=== PATIENT | male | born 1995 | race Caucasian/White ===

== ENCOUNTER 2016-07-11 11:43 | Emergency (ER) | payer OTHER ==
[2016-07-11 11:57] VITALS: BP 123/54; PULSE 65; RESP 16; TEMP 97.5; O2SAT 97
--- NOTE | 2016-07-11 12:39 | EDPHY ---
H & P Time Seen by Provider: 07/11/16 12:06 HPI/ROS: CHIEF COMPLAINT: right shoulder pain, right ankle pain HISTORY OF PRESENT ILLNESS: 21-year-old male presents to the emergency department by private vehicle complaining of right and left shoulder pain as well as right ankle pain. The patient states 1 week ago he fell down some stairs. He did not hit his head or lose consciousness. Since that time he has had what he describes as a clicking sensation in his right shoulder. He has some mild pain in his left shoulder. He is also having some pain in his right ankle. He is able to bear weight. He denies bilateral knee pain. He denies neck or back pain. Denies chest pain or difficulty breathing. Denies paresthesias in upper or lower extremities. Denies headache. REVIEW OF SYSTEMS: Constitutional: No fever, no chills. Eyes: No double or blurry vision. ENT: No sore throat. Respiratory: No cough, no shortness of breath. Cardiac: No chest pain. Gastrointestinal: No abdominal pain, vomiting or diarrhea. Genitourinary: No dysuria. Musculoskeletal: No neck or back pain. Skin: No rashes. Neurological: No headache. Past Medical/Surgical History: Negative Social History: Single, from [facility]. Smoking Status: Never smoked Physical Exam: General Appearance: Alert, no distress. No visible signs of trauma to his head. He is mentating normally and answering questions appropriately. Eyes: Pupils equal and round. Extraocular motions are all intact. ENT: Mouth: Mucous membranes moist. Respiratory: No wheezing, rhonchi, or rales, lungs are clear to auscultation. Cardiovascular: Regular rate and rhythm. Gastrointestinal: Abdomen is soft and nontender, no masses, no rebound or guarding, bowel sounds normal. Neurological: Alert and oriented x 3, cranial nerves II through XII grossly intact Skin: Warm and dry, no rashes. Musculoskeletal: Nontender to palpate along the cervical, thoracic or lumbar spine. Neck is supple. Extremities: No swelling noted to the right ankle. Nontender to palpate over the medial or lateral malleolus. Full range of motion of the right ankle. Normal gait. Left posterior shoulder reveals a small area of redness and small palpable lump. Possible sebaceous cyst. No evidence of other abscess. He has full range of motion of his left shoulder. No palpable bony tenderness. Right shoulder does reveal some clicking with certain range of motion. He has full range of motion of the right shoulder. No palpable bony tenderness. No pain with range of motion. Full range of motion of the elbows and wrists bilaterally. Psychiatric: Patient is oriented X 3, there is no agitation. Constitutional: Initial Vital Signs Temperature (C) 36.4 C 07/11/16 11:45 Heart Rate 65 07/11/16 11:45 Respiratory Rate 16 07/11/16 11:45 Blood Pressure 123/54 H 07/11/16 11:45 O2 Sat (%) 97 07/11/16 11:45 O2 Delivery Mode Room Air Allergies/Adverse Reactions: No Known Allergies Allergy (Unverified 07/11/16 11:57) Home Medications: Medication Instructions Recorded NK [No Known Home Meds] 07/11/16 Medical Decision Making ED Course/Re-evaluation: 21-year-old male presents to the emergency department with bilateral shoulder pain and right ankle pain. I do not think x-rays are indicated. The left posterior shoulder reveals small area of redness which could be possible cyst. I do not think x-rays are indicated. No evidence of palpable bony tenderness. Full range of motion of both shoulders. The full range of motion of the right ankle. He has a normal gait. I do not think x-rays are indicated. He was given orthopedic referral and will follow up in 1 week. He was instructed to return if any other change in symptoms or feels worse. Differential Diagnosis: Including but not limited to muscular strain, muscular sprain, fracture, dislocation, contusion Departure - Departure Disposition: Home, Routine, Self-Care Clinical Impression: Sprain of right shoulder Qualifiers: Encounter type: initial encounter Shoulder sprain type: unspecified sprain Qualified Code(s): S43.401A - Unspecified sprain of right shoulder joint, initial encounter Right ankle sprain Qualifiers: Encounter type: initial encounter Involved ligament of ankle: unspecified ligament Qualified Code(s): S93.401A - Sprain of unspecified ligament of right ankle, initial encounter Condition: Good Instructions: Ankle Sprain (ED), Shoulder Sprain (ED) Additional Instructions: Activity as tolerated. Ibuprofen 600mg every 8 hours for pain as directed. Referrals: David Olivo MD [Medical Doctor] - 5-7 days, call for appt. (On-call orthopedic surgeon)
== END 2016-07-11 12:40 | disposition home or self-care (01) ==
DX: S43.401A Unspecified sprain of right shoulder joint, initial encounter (principal); S93.401A Sprain of unspecified ligament of right ankle, initial encounter; W10.8XXA Fall (on) (from) other stairs and steps, initial encounter